=== PATIENT | female | born 1970 | race Caucasian/White ===

== ENCOUNTER 2024-07-09 09:24 | Emergency (ER) | payer BC ==
[~2024-07-09] VITALS: Ht 160 cm; Wt 77.6 kg
[2024-07-09] MEDS ORDERED: MAGNESIUM HYDROXIDE 30 ML UDC ONE (10:55)
[2024-07-09] MEDS ORDERED: NA PHOS,M-B/NA PHOS,DI-BA 1 EA ENEMA RC ONE (10:57)
[2024-07-09] MEDS ORDERED: SENNOSIDES 8.6 MG TABLET ONE (10:58)
[2024-07-09] MEDS: MAGNESIUM HYDROXIDE 30 ML UDC PO ONE (11:03)
[2024-07-09] MEDS: SENNOSIDES/DOCUSATE SODIUM 1 TAB TABLET PO SCH (11:04)
[2024-07-09] MEDS: POLYETHYLENE GLYCOL 3350 17 GM POWD.PACK PO ONE (11:04)
[2024-07-09] MEDS: NA PHOS,M-B/NA PHOS,DI-BA 1 EA ENEMA RC ONE (11:14)
[2024-07-09] MEDS ORDERED: SENN8.6T19 PO (12:40)
[2024-07-09] MEDS ORDERED: POLY17PO4 PO (12:40)
[2024-07-09 13:21] VITALS: BP 136/86; TEMP 98.4; O2SAT 99
== END 2024-07-09 13:23 | disposition home or self-care (01) ==
LOC: ER 09:34
DX: K59.00 Constipation, unspecified (principal)